=== PATIENT | female | born 1945 | race Caucasian/White ===

== ENCOUNTER → 2018-08-09 | Outpatient (REF) | payer MEDICARE, OTHER ==
[2018-08-10 14:43] LABS: ANTI CENTROMERE ANTIBODY <0.2 AI (0.0-0.9); ANTI SCLERODERMA ANTIBODIES <0.2 AI (0.0-0.9); ANTINUCLEAR ANTIBODIES DIRECT Negative (Negative)
== END ==
LOC: M LAB REF 12:36
PROVIDERS: ATTEND Nurse Practitioner Adult Health
DX: M79.10 Myalgia, unspecified site (principal)

== ENCOUNTER → 2018-11-14 | Outpatient (REF) | payer MEDICARE, OTHER ==
[2018-11-15 13:20] LABS: TOTAL PROTEIN 6.9 GM/DL (6.4-8.2)
[2018-11-19 12:01] LABS: ALBUMIN 4.18 GM/DL (3.29-5.55); ALBUMIN % 60.6 % (55.8-66.1); ALPHA-1-GLOBULIN % 4.3 % (2.9-4.9); ALPHA-2-GLOBULINS 0.66 GM/DL (0.42-0.99); ALPHA-2-GLOBULINS % 9.6 % (7.1-11.8); BETA-1-GLOBULINS 0.37 GM/DL (0.28-0.60); BETA-1-GLOBULINS % 5.4 % (4.7-7.2); BETA-2-GLOBULINS 0.36 GM/DL (0.19-0.55); BETA-2-GLOBULINS % 5.2 % (3.2-6.5); GAMMA GLOBULIN % 14.9 % (11.1-18.8); GAMMA GLOBULINS 1.03 GM/DL (0.65-1.58)
== END ==
LOC: M LAB REF 12:22
PROVIDERS: ATTEND Nurse Practitioner Adult Health
DX: R74.8 Abnormal levels of other serum enzymes (principal)

== ENCOUNTER → 2018-11-22 | Outpatient (REF) | payer MEDICARE, OTHER ==
[2018-11-22 18:38] LABS: PTH INTACT 169.2 PG/ML (18.5-88.0)
[2018-11-27 11:10] LABS: PHOSPHORUS LEVEL 3.1 MG/DL (2.5-4.9)
== END ==
LOC: M LAB REF 17:06
PROVIDERS: ATTEND Nurse Practitioner Adult Health
DX: R74.8 Abnormal levels of other serum enzymes (principal)

== ENCOUNTER → 2019-07-15 | Outpatient (REF) | payer MEDICARE, OTHER | LOC: M LAB REF 17:16 | PROVIDERS: ATTEND Nurse Practitioner Adult Health | DX: M15.0 Primary generalized (osteo)arthritis (principal); M79.10 Myalgia, unspecified site ==

== ENCOUNTER → 2019-09-11 | Outpatient (REF) | payer MEDICARE, OTHER ==
[2019-09-11 19:21] LABS: APPEARANCE, URINE CLEAR (CLEAR); BACTERIA, URINE AUTO 1+ (NEGATIVE); BILIRUBIN, URINE AUTO NEGATIVE (NEGATIVE); BLOOD, URINE BLOOD NEGATIVE (NEGATIVE); COLOR, URINE YELLOW (YELLOW); GLUCOSE, URINE (UA) AUTO NEGATIVE (NEGATIVE); KETONE, URINE AUTO NEGATIVE (NEGATIVE); LEUKOCYTE ESTERASE, URINE AUTO NEGATIVE (NEGATIVE); MUCUS, URINE SMALL (NEGATIVE); NITRITE, URINE AUTO NEGATIVE (NEGATIVE); PROTEIN, URINE AUTO NEGATIVE (NEGATIVE); RBC, URINE AUTO 2 /HPF (0-3); SPECIFIC GRAVITY URINE AUTO 1.011 (1.002-1.035); SQUAMOUS EPITHELIAL CELL UR AU 0 /HPF (0-6); UROBILINOGEN, URINE AUTO 0.2 mg/dL (0.0-2.0); WBC, URINE AUTO 1 /HPF (0-3)
== END ==
LOC: M LAB REF 16:23
PROVIDERS: ATTEND Nurse Practitioner Adult Health
DX: Z01.818 Encounter for other preprocedural examination (principal)

== ENCOUNTER 2020-01-27 12:45 | Outpatient (RCR) | payer MEDICARE, OTHER | END 2020-01-28 | disposition home or self-care (01) | LOC: M PT 12:45 | PROVIDERS: ATTEND Surgery Vascular Surgery | DX: I87.2 Venous insufficiency (chronic) (peripheral) (principal) ==

== ENCOUNTER 2020-01-29 12:47 | Outpatient (RCR) | payer MEDICARE, OTHER | END 2020-02-28 | LOC: M PT 12:47 | PROVIDERS: ATTEND Surgery Vascular Surgery | DX: I89.0 Lymphedema, not elsewhere classified (principal); I87.2 Venous insufficiency (chronic) (peripheral) ==

== ENCOUNTER → 2020-08-03 | Outpatient (REF) | payer MEDICARE, OTHER | LOC: M LAB REF 12:45 | PROVIDERS: ATTEND Nurse Practitioner Adult Health | DX: N76.2 Acute vulvitis (principal) ==

== ENCOUNTER → 2021-01-07 | Outpatient (CLI) | payer MEDICARE, OTHER ==
[~2021-01-07] MED LIST: E-Z-GAS II EFFERVESCENT PACKET (SODIUM BICARB./CITRIC ACID/SIMETHICONE) As Ordered ONE; E-Z-HD 98% w/w 340GM SUSP BTL As Ordered ONE; E-Z-PAQUE 96% w/w SUSP 176GM BTL As Ordered ONE
--- NOTE | 2021-01-07 15:15 | REP ---
INDICATION: DYSPHAGIA. COMPARISON: None. TECHNIQUE: The procedure was performed under the direct supervision of Dr. Rucker. The images were reviewed with . Liquid barium and gas producing crystals were given in the erect position as well as liquid barium in the prone oblique position in order to perform a double contrast upper GI examination. A combination of fluoroscopy, spot films and last image hold technology was utilized. 1.5 minutes of fluoro time was utilized for this procedure. FINDINGS: The chief ophthalmic technician film shows no organomegaly or pathological masses. The intestinal gas pattern is non-specific. There are vascular calcifications identified. There are degenerative changes of spine. There are degenerative changes in the hips bilaterally left greater than right. The oral and pharyngeal stages of deglutition are unremarkable. During esophageal transport there are tertiary waves demonstrated. In the mid esophagus there is mucosal irregularity which is consistent with esophagitis. There is no vandana ulcer identified. There is no stricture, mucosal ring or hiatal hernia identified. Gastroesophageal reflux is not demonstrated on this examination The stomach triana are normally outlined. The rugal folds are smooth and regular. There is no gastritis neoplasm or ulcer disease. Within the duodenum there are thickened folds which may represent duodenitis. There is no vandana ulcer identified the visualized portion of the proximal small bowel appears normal in course and caliber. IMPRESSION: 1. Tertiary waves. 2. There is mucosal irregularity in the mid esophagus which likely represents esophagitis. There is no vandana ulcer identified. 3. There are thickened folds in the duodenum which may represent duodenitis. <Electronically signed by Adama Garcia > 01/07/21 1509 <Electronically signed by Jose Rucker > 01/07/21 1514
== END ==
LOC: M RAD 08:49
PROVIDERS: ATTEND Surgery
DX: R13.14 Dysphagia, pharyngoesophageal phase (principal)

== ENCOUNTER → 2021-03-02 | Outpatient (CLI) | payer MEDICARE, OTHER | LOC: M LABSMTC 11:21 | PROVIDERS: ATTEND Internal Medicine Gastroenterology | DX: Z20.828 Contact with and (suspected) exposure to other viral communicable diseases (principal); Z11.52 Encounter for screening for COVID-19 ==

== ENCOUNTER → 2021-03-17 | Outpatient (CLI) | payer MEDICARE, OTHER | LOC: M LABSMTC 11:16 | PROVIDERS: ATTEND Internal Medicine Gastroenterology | DX: Z01.818 Encounter for other preprocedural examination (principal); Z11.52 Encounter for screening for COVID-19 ==

== ENCOUNTER → 2021-08-18 | Outpatient (REF) | payer MEDICARE, OTHER ==
[2021-08-18 16:40] LABS: INR 0.96; PROTHROMBIN TIME 13.2 SECONDS (12.7-14.5)
[2021-08-18 16:41] LABS: PARTIAL THROMBOPLASTIN TIME 35.9 SECONDS (25.9-37.0)
[2021-08-18 16:49] LABS: AMORPHOUS SEDIMENT SMALL (NEGATIVE); APPEARANCE, URINE TURBID (CLEAR); BACTERIA, URINE AUTO NEGATIVE (NEGATIVE); BILIRUBIN, URINE AUTO 1+ (NEGATIVE); BLOOD, URINE BLOOD NEGATIVE (NEGATIVE); COLOR, URINE AMBER (YELLOW); GLUCOSE, URINE (UA) AUTO NEGATIVE (NEGATIVE); KETONE, URINE AUTO TRACE mg/dL (NEGATIVE); LEUKOCYTE ESTERASE, URINE AUTO NEGATIVE (NEGATIVE); MUCUS, URINE LARGE (NEGATIVE); NITRITE, URINE AUTO NEGATIVE (NEGATIVE); PROTEIN, URINE AUTO 1+ mg/dL (NEGATIVE); RBC, URINE AUTO 1 /HPF (0-3); SQUAMOUS EPITHELIAL CELL UR AU 5 /HPF (0-6); WBC, URINE AUTO 0 /HPF (0-3)
== END ==
LOC: M LAB REF 16:15
PROVIDERS: ATTEND Nurse Practitioner Adult Health
DX: Z01.818 Encounter for other preprocedural examination (principal)

== ENCOUNTER → 2021-09-10 | Outpatient (CLI) | payer MEDICARE, OTHER | LOC: M LABSMTC 11:38 | PROVIDERS: ATTEND Orthopaedic Surgery | DX: Z01.812 Encounter for preprocedural laboratory examination (principal); Z20.822 Contact with and (suspected) exposure to COVID-19 ==

== ENCOUNTER → 2022-03-01 | Outpatient (REF) | payer MEDICARE, OTHER | LOC: M LAB REF 12:08 | PROVIDERS: ATTEND Nurse Practitioner Adult Health | DX: E21.0 Primary hyperparathyroidism (principal) ==

== ENCOUNTER → 2022-12-15 | Outpatient (REF) | payer MEDICARE, OTHER | LOC: M LAB REF 12:20 | PROVIDERS: ATTEND Nurse Practitioner Adult Health | DX: E21.0 Primary hyperparathyroidism (principal); E89.0 Postprocedural hypothyroidism; N39.0 Urinary tract infection, site not specified ==

== ENCOUNTER → 2024-02-07 | Outpatient (REF) | payer MEDICARE, OTHER | LOC: M LAB REF 16:41 | PROVIDERS: ATTEND Nurse Practitioner Family | DX: E21.0 Primary hyperparathyroidism (principal); E89.0 Postprocedural hypothyroidism ==

== ENCOUNTER 2024-12-06 19:30 | Inpatient (IN) | payer MEDICARE, OTHER ==
[~2024-12-06] VITALS: Ht 172.7 cm; Wt 103.2 kg
[2024-12-06] MEDS ORDERED: SYNT100T PO (19:52)
[2024-12-06 21:05] LABS: BASO # 0.0 10^3/uL (0.0-0.2); BASO % 0.5 % (0.0-1.0); EOS # 0.0 10^3/uL (0.0-0.5); EOS % 0.0 % (0.0-3.0); LYMPH # 0.2 10^3/uL (1.5-5.0); LYMPH % 3.7 % (24.0-44.0); MONO # 0.5 10^3/uL (0.0-0.8); MONO % 8.0 % (2.0-8.0); NEUTROPHILS # 5.4 10^3/uL (1.5-8.5); NEUTROPHILS % 87.3 % (36.0-66.0); PLATELET COUNT, AUTOMATED 131 10^3/uL (150-450)
[2024-12-06 21:35] LABS: C REACTIVE PROTEIN QUANTITATIV 9.15 MG/DL (<1.0)
[2024-12-06 21:40] LABS: ALT/SGPT 21 U/L (7.0-40); AST/SGOT 32 U/L (<34); CALCIUM LEVEL 8.6 MG/DL (8.3-10.6); CARBON DIOXIDE LEVEL 27 MMOL/L (20-31); CHLORIDE LEVEL 104 MMOL/L (98-107); CREATININE FOR GFR 0.72 MG/DL (0.55-1.30); GLOMERULAR FILTRATION RATE 84.0 (>32); POTASSIUM SERUM 3.5 MMOL/L (3.5-5.1); SODIUM LEVEL 141 MMOL/L (136-145)
[2024-12-06] MEDS: ACETAMINOPHEN 325 MG TAB PO ONE (23:03)
[2024-12-06 23:35] LABS: KETONE, URINE AUTO RFX NEGATIVE (NEGATIVE); LEUKOCYTE ESTERASE UR AUTO RFX NEGATIVE (NEGATIVE); MUCUS, URINE RFX SMALL (NEGATIVE); NITRITE, URINE AUTO RFX NEGATIVE (NEGATIVE); RBC, URINE AUTO RFX 0 /HPF (0-3); SQUAM EPITHELIAL CELL UR AURFX 1 /HPF (0-6); WBC, URINE AUTO RFX 1 /HPF (0-3)
[2024-12-06] MEDS: NS (Normal Saline) 0.9% 1,000 ML IV SCH (23:53)
[2024-12-07] MEDS ORDERED: ISOVUE-370 76% 100 ML VIAL As Ordered ONE (00:41)
[2024-12-07] MEDS ORDERED: LEVO150T7 PO (01:41)
[2024-12-07] MEDS ORDERED: HOME MED LIST COMPLETE! XX SCH (01:45)
[2024-12-07] MEDS: cefTRIAXone SOD 1 GM in DEXTROSE 5% (D5W) ADV/MINI-BAG 50 ML IV SCH (02:05)
[2024-12-07] MEDS: LR 1,000 ML IV SCH (02:05)
[2024-12-07] MEDS: ACETAMINOPHEN 325 MG TAB PO PRN (04:16)
[2024-12-07 04:30] VITALS: BP 162/81; TEMP 99.9; O2SAT 95
[2024-12-07 05:11] LABS: CA19-9 TUMOR MARKER,CARBOHYDRA < 1.2 U/ML (<35.0)
[2024-12-07] MEDS: LEVOTHYROXINE 150 MCG TABLET (0.15 MG) PO SCH (05:47)
[2024-12-07] MEDS: DOCUSATE SODIUM 100 MG CAPSULE PO SCH (08:01)
[2024-12-07] MEDS: ENOXAPARIN 40 MG/0.4 ML SYRINGE (J1650 PER 10MG) SC SCH (08:01)
[2024-12-07] MEDS ORDERED: PROHANCE 279.3MG/ML 5ML VIAL As Ordered ONE (10:43)
[2024-12-07] MEDS ORDERED: PROHANCE 279.3MG/ML 15ML VIAL As Ordered ONE (10:43)
[2024-12-07] MEDS: DOXYCYCLINE HYCLATE 100 MG TABLET PO SCH (12:15)
[2024-12-07 12:24] VITALS: BP 158/81; TEMP 98.6; O2SAT 91
[2024-12-07 13:19] LABS: BASO # 0.0 10^3/uL (0.0-0.2); BASO % 0.3 % (0.0-1.0); EOS # 0.0 10^3/uL (0.0-0.5); EOS % 0.0 % (0.0-3.0); LYMPH # 0.2 10^3/uL (1.5-5.0); LYMPH % 3.4 % (24.0-44.0); MONO # 0.3 10^3/uL (0.0-0.8); MONO % 4.8 % (2.0-8.0); NEUTROPHILS # 5.9 10^3/uL (1.5-8.5); NEUTROPHILS % 90.9 % (36.0-66.0); PLATELET COUNT, AUTOMATED 110 10^3/uL (150-450)
[2024-12-07 13:22] LABS: LDH LACTATE DEHYDROGENASE 356 U/L (120-246)
[2024-12-07 13:23] LABS: ALT/SGPT 41 U/L (7.0-40); AST/SGOT 81 U/L (<34); CALCIUM LEVEL 8.1 MG/DL (8.3-10.6); CARBON DIOXIDE LEVEL 26 MMOL/L (20-31); CHLORIDE LEVEL 104 MMOL/L (98-107); CREATININE FOR GFR 0.56 MG/DL (0.55-1.30); GLOMERULAR FILTRATION RATE > 90.0 (>32); POTASSIUM SERUM 3.3 MMOL/L (3.5-5.1); SODIUM LEVEL 141 MMOL/L (136-145)
[2024-12-07 14:05] LABS: C REACTIVE PROTEIN QUANTITATIV 19.43 MG/DL (<1.0)
[2024-12-07] MEDS ORDERED: VANCOMYCIN HCL 1,500 MG, VIAL MATE ADAPTER 1 EACH in NS 250 ML IV ONE (14:20)
[2024-12-07] MEDS ORDERED: MORPHINE 2 MG/ML 1 ML VIAL IV PRN (14:40)
[2024-12-07] MEDS: NS (Normal Saline) 0.9% 1,000 ML IV SCH (15:34)
[2024-12-07] MEDS: POTASSIUM CHLORIDE 10MEQ SR TABLET PO ONE (15:35)
[2024-12-07] MEDS: VANCOMYCIN HCL 2,000 MG, VIAL MATE ADAPTER 1 EACH in NS 500 ML IV ONE (17:30)
[2024-12-07 18:47] LABS: D-DIMER QUANT 5.73 ug/mL (<0.5); INR 1.44
[2024-12-07 20:12] VITALS: BP 120/59; TEMP 99; O2SAT 89
[2024-12-07 20:13] VITALS: O2SAT 94
[2024-12-08] MEDS: cefTRIAXone SOD 2 GM in DEXTROSE 5% (D5W) ADV/MINI-BAG 50 ML IV SCH (00:43)
[2024-12-08 04:37] VITALS: BP 142/70; TEMP 98.4; O2SAT 96
[2024-12-08 08:34] LABS: VANCOMYCIN RANDOM 6.5 UG/ML
[2024-12-08 08:53] LABS: PLATELET COUNT, AUTOMATED 87 10^3/uL (150-450)
[2024-12-08 08:55] LABS: ALT/SGPT 49 U/L (7.0-40); AST/SGOT 74 U/L (<34); C REACTIVE PROTEIN QUANTITATIV 28.71 MG/DL (<1.0); CALCIUM LEVEL 8.1 MG/DL (8.3-10.6); CARBON DIOXIDE LEVEL 26 MMOL/L (20-31); CHLORIDE LEVEL 108 MMOL/L (98-107); CREATININE FOR GFR 0.50 MG/DL (0.55-1.30); GLOMERULAR FILTRATION RATE > 90.0 (>32); MAGNESIUM LEVEL 1.9 MG/DL (1.8-2.4); POTASSIUM SERUM 3.2 MMOL/L (3.5-5.1); SODIUM LEVEL 144 MMOL/L (136-145)
[2024-12-08] MEDS: VANCOMYCIN HCL 1,250 MG, VIAL MATE ADAPTER 1 EACH in NS 250 ML IV SCH (09:30)
[2024-12-08] MEDS: POTASSIUM CHLORIDE 10MEQ SR TABLET PO ONE (09:30)
[2024-12-08] MEDS ORDERED: VANCOMYCIN HCL 1,500 MG, VIAL MATE ADAPTER 1 EACH in NS 500 ML IV SCH (10:00)
[2024-12-08] MEDS: LIDOCAINE 1% MDV 20 ML VIAL SC STA (12:20)
[2024-12-08] MEDS: KCL 20MEQ in NS 1000ML 1,000 ML IV SCH (14:02)
[2024-12-08 14:36] LABS: SOURCE, BODY FLUID RT KNEE
[2024-12-08 14:47] LABS: CRYSTALS, BODY FLUID NONE SEEN (NONE SEEN); SOURCE, BODY FLUID CRYSTALS RT KNEE
[2024-12-08 21:16] VITALS: BP 139/85; TEMP 98.2; O2SAT 92
[2024-12-09] VITALS (7 sets, daily range): BP systolic 136–170; BP diastolic 62–86; TEMP 98.1–99.9; O2SAT 91–94
[2024-12-09 08:41] LABS: BASO # 0.0 10^3/uL (0.0-0.2); BASO % 0.5 % (0.0-1.0); EOS # 0.0 10^3/uL (0.0-0.5); EOS % 0.5 % (0.0-3.0); LYMPH # 0.6 10^3/uL (1.5-5.0); LYMPH % 9.4 % (24.0-44.0); MONO # 0.7 10^3/uL (0.0-0.8); MONO % 10.7 % (2.0-8.0); NEUTROPHILS # 5.0 10^3/uL (1.5-8.5); NEUTROPHILS % 78.6 % (36.0-66.0)
[2024-12-09 08:42] LABS: PLATELET COUNT, AUTOMATED 93 10^3/uL (150-450)
[2024-12-09 09:02] LABS: ALT/SGPT 39 U/L (7.0-40); AST/SGOT 57 U/L (<34); CALCIUM LEVEL 8.1 MG/DL (8.3-10.6); CARBON DIOXIDE LEVEL 27 MMOL/L (20-31); CHLORIDE LEVEL 106 MMOL/L (98-107); CREATININE FOR GFR 0.44 MG/DL (0.55-1.30); GLOMERULAR FILTRATION RATE > 90.0 (>32); POTASSIUM SERUM 3.7 MMOL/L (3.5-5.1); SODIUM LEVEL 142 MMOL/L (136-145)
[2024-12-09] MEDS: ceFAZolin SODIUM 2 GM in DEXTROSE 5% (D5W) ADV/MINI-BAG 50 ML IV SCH (10:04)
[2024-12-09] MEDS ORDERED: ONDANSETRON 4MG 2ML VIAL As Ordered ONE (17:17)
[2024-12-09] MEDS ORDERED: LIDOCAINE 2% 100 MG/5 ML SDV (FOR ANES.) As Ordered ONE (17:17)
[2024-12-09] MEDS ORDERED: dexAMETHasone 4 MG/ML 1 ML VIAL As Ordered ONE (17:17)
[2024-12-09] MEDS ORDERED: KETOROLAC 30 MG/ML 1 ML VIAL As Ordered ONE (17:17)
[2024-12-09] MEDS ORDERED: ACETAMINOPHEN 1000MG/100ML IV BAG As Ordered ONE (18:30)
[2024-12-09] MEDS ORDERED: PHENYLephrine 500MCG 5ML (100MCG/ML) SYRINGE As Ordered ONE (18:37)
[2024-12-09] MEDS: EPINEPHrine 1 MG/ML INJ 30 ML MD-VIAL As Ordered ONE (19:03)
[2024-12-09] MEDS ORDERED: ONDANSETRON 4MG 2ML VIAL IV PRN (19:15)
[2024-12-09] MEDS ORDERED: MORPHINE 2 MG/ML 1 ML VIAL IV PRN (19:15)
[2024-12-09] MEDS ORDERED: LABETALOL 100 MG/20 ML VIAL As Ordered ONE (19:21)
[2024-12-09] MEDS: ASPIRIN 81 MG ENTERIC TABLET PO SCH (20:45)
[2024-12-10] VITALS (7 sets, daily range): BP systolic 130–169; BP diastolic 68–78; TEMP 97.5–98.4; O2SAT 90–95
[2024-12-10 06:20] LABS: BASO # 0.0 10^3/uL (0.0-0.2); BASO % 0.2 % (0.0-1.0); EOS # 0.0 10^3/uL (0.0-0.5); EOS % 0.0 % (0.0-3.0); LYMPH # 0.4 10^3/uL (1.5-5.0); LYMPH % 6.4 % (24.0-44.0); MONO # 0.5 10^3/uL (0.0-0.8); MONO % 8.6 % (2.0-8.0); NEUTROPHILS # 5.1 10^3/uL (1.5-8.5); NEUTROPHILS % 84.5 % (36.0-66.0); PLATELET COUNT, AUTOMATED 131 10^3/uL (150-450)
[2024-12-10 06:39] LABS: ALT/SGPT 32 U/L (7.0-40); AST/SGOT 38 U/L (<34); CALCIUM LEVEL 8.2 MG/DL (8.3-10.6); CARBON DIOXIDE LEVEL 29 MMOL/L (20-31); CHLORIDE LEVEL 105 MMOL/L (98-107); CREATININE FOR GFR 0.44 MG/DL (0.55-1.30); GLOMERULAR FILTRATION RATE > 90.0 (>32); MAGNESIUM LEVEL 1.9 MG/DL (1.8-2.4); POTASSIUM SERUM 4.0 MMOL/L (3.5-5.1); SODIUM LEVEL 144 MMOL/L (136-145)
[2024-12-10 07:21] LABS: C REACTIVE PROTEIN QUANTITATIV 23.97 MG/DL (<1.0)
[2024-12-10] MEDS ORDERED: SODIUM CHLORIDE 0.9% INJ 10 ML SYR IV PRN (17:10)
[2024-12-10] MEDS: SODIUM CHLORIDE 0.9% INJ 10 ML SYR IV SCH (18:19)
[2024-12-10] MEDS: ENOXAPARIN 40 MG/0.4 ML SYRINGE (J1650 PER 10MG) SC SCH (20:54)
[2024-12-11 04:00] VITALS: BP 164/74; TEMP 98.1; O2SAT 95
[2024-12-11 06:22] LABS: BASO # 0.0 10^3/uL (0.0-0.2); BASO % 0.3 % (0.0-1.0); EOS # 0.0 10^3/uL (0.0-0.5); EOS % 0.5 % (0.0-3.0); LYMPH # 1.0 10^3/uL (1.5-5.0); LYMPH % 16.5 % (24.0-44.0); MONO # 0.9 10^3/uL (0.0-0.8); MONO % 14.9 % (2.0-8.0); NEUTROPHILS # 4.1 10^3/uL (1.5-8.5); NEUTROPHILS % 67.1 % (36.0-66.0); PLATELET COUNT, AUTOMATED 142 10^3/uL (150-450)
[2024-12-11 06:50] LABS: ALT/SGPT 34 U/L (7.0-40); AST/SGOT 47 U/L (<34); C REACTIVE PROTEIN QUANTITATIV 15.56 MG/DL (<1.0); CALCIUM LEVEL 8.2 MG/DL (8.3-10.6); CARBON DIOXIDE LEVEL 31 MMOL/L (20-31); CHLORIDE LEVEL 105 MMOL/L (98-107); CREATININE FOR GFR 0.47 MG/DL (0.55-1.30); GLOMERULAR FILTRATION RATE > 90.0 (>32); POTASSIUM SERUM 3.5 MMOL/L (3.5-5.1); SODIUM LEVEL 144 MMOL/L (136-145)
[2024-12-11] MEDS: SENNA 8.6 MG TAB PO SCH (09:00)
[2024-12-11 09:52] VITALS: BP 148/70; TEMP 97.8; O2SAT 91
[2024-12-11 13:00] VITALS: BP 131/70; TEMP 98; O2SAT 92
[2024-12-11 15:17] LABS: BORRELIA SPECIES DNA NOT DETECTED (NOT DETECT)
[2024-12-11] MEDS ORDERED: NALOXONE INJ 0.4 MG/1 ML VIAL IV PRN (19:55)
[2024-12-11 20:25] VITALS: BP 156/70; TEMP 97.2; O2SAT 92
[2024-12-11] MEDS: KETOROLAC 30 MG/ML 1 ML VIAL IV SCH (20:52)
[2024-12-11] MEDS: SENNOSIDES/DOCUSATE SODIUM 8.6 MG/50MG TAB PO SCH (20:52)
[2024-12-11] MEDS: METHOCARBAMOL 1,000 MG/10 ML VIAL IV ONE (22:04)
[2024-12-12 03:09] VITALS: O2SAT 82
[2024-12-12 03:10] VITALS: O2SAT 94
[2024-12-12 04:35] VITALS: BP 129/79; TEMP 97.7; O2SAT 92
[2024-12-12 06:14] LABS: BASO # 0.0 10^3/uL (0.0-0.2); BASO % 0.3 % (0.0-1.0); EOS # 0.1 10^3/uL (0.0-0.5); EOS % 1.3 % (0.0-3.0); LYMPH # 1.0 10^3/uL (1.5-5.0); LYMPH % 16.8 % (24.0-44.0); MONO # 0.8 10^3/uL (0.0-0.8); MONO % 13.8 % (2.0-8.0); NEUTROPHILS # 4.0 10^3/uL (1.5-8.5); NEUTROPHILS % 66.8 % (36.0-66.0); PLATELET COUNT, AUTOMATED 175 10^3/uL (150-450)
[2024-12-12 06:48] LABS: ALT/SGPT 32 U/L (7.0-40); AST/SGOT 45 U/L (<34); CALCIUM LEVEL 7.9 MG/DL (8.3-10.6); CARBON DIOXIDE LEVEL 32 MMOL/L (20-31); CHLORIDE LEVEL 106 MMOL/L (98-107); CREATININE FOR GFR 0.42 MG/DL (0.55-1.30); GLOMERULAR FILTRATION RATE > 90.0 (>32); POTASSIUM SERUM 3.2 MMOL/L (3.5-5.1); SODIUM LEVEL 146 MMOL/L (136-145)
[2024-12-12 06:51] LABS: C REACTIVE PROTEIN QUANTITATIV 16.76 MG/DL (<1.0)
[2024-12-12] MEDS: MOM 30 ML SUSPENSION UDC PO PRN (08:30)
[2024-12-12] MEDS ORDERED: CEFA2VIA3 IV (11:15)
[2024-12-12] MEDS ORDERED: ACET32TAB PO (11:15)
[2024-12-12] MEDS ORDERED: DOCU8.6T PO (11:15)
[2024-12-12] MEDS: FLEET ENEMA PR STA (11:50)
== END 2024-12-12 12:35 | DRG 487 ==
LOC: M ED 19:30 → M ED INP 12-07 02:06 → M MSPAV 12-07 03:59
PROVIDERS: ADMIT Student in an Organized Health Care Education/Training Program; ATTEND Internal Medicine
PROC: 0S9D3ZX Drainage of Left Knee Joint, Percutaneous Approach, Diagnostic (ICD-10-PCS; 2024-12-08)
PROC: B246ZZZ Ultrasonography of Right and Left Heart (ICD-10-PCS; 2024-12-08)
PROC: 0SBC3ZZ Excision of Right Knee Joint, Percutaneous Approach (ICD-10-PCS; principal; 2024-12-09 12:50)
DX: M00.061 Staphylococcal arthritis, right knee (principal); M25.461 Effusion, right knee; E89.0 Postprocedural hypothyroidism; D69.6 Thrombocytopenia, unspecified; Z66 Do not resuscitate; M25.561 Pain in right knee; E87.6 Hypokalemia; R53.1 Weakness; M17.11 Unilateral primary osteoarthritis, right knee; Z96.642 Presence of left artificial hip joint; Z79.890 Hormone replacement therapy

== ENCOUNTER → 2024-12-17 | Outpatient (REF) ==
[~2024-12-17] MED LIST changes: +ACET32TAB PO; +CEFA2VIA3 IV; +DOCU8.6T PO; -E-Z-GAS II EFFERVESCENT PACKET (SODIUM BICARB./CITRIC ACID/SIMETHICONE) As Ordered ONE; -E-Z-HD 98% w/w 340GM SUSP BTL As Ordered ONE; -E-Z-PAQUE 96% w/w SUSP 176GM BTL As Ordered ONE; +LEVO150T7 PO; +SYNT100T PO
[2024-12-17 14:08] LABS: PLATELET COUNT, AUTOMATED 323 10^3/uL (150-450)
[2024-12-17 14:29] LABS: ERYTHROCYTE SEDIMENTATION RATE 43 mm/hr (0-30)
[2024-12-17 14:41] LABS: CALCIUM LEVEL 8.3 MG/DL (8.3-10.6); CARBON DIOXIDE LEVEL 31 MMOL/L (20-31); CHLORIDE LEVEL 104 MMOL/L (98-107); CREATININE FOR GFR 0.39 MG/DL (0.55-1.30); GLOMERULAR FILTRATION RATE > 90.0 (>32); POTASSIUM SERUM 3.8 MMOL/L (3.5-5.1); SODIUM LEVEL 144 MMOL/L (136-145)
[2024-12-17 14:42] LABS: C REACTIVE PROTEIN QUANTITATIV 19.69 MG/DL (<1.0)
== END ==
PROVIDERS: ATTEND Internal Medicine
DX: M00.061 Staphylococcal arthritis, right knee (principal)

== ENCOUNTER → 2024-12-22 | Outpatient (REF) ==
[2024-12-22 17:47] LABS: BASO # 0.1 10^3/uL (0.0-0.2); BASO % 0.7 % (0.0-1.0); EOS # 0.2 10^3/uL (0.0-0.5); EOS % 1.7 % (0.0-3.0); LYMPH # 1.0 10^3/uL (1.5-5.0); LYMPH % 11.3 % (24.0-44.0); MONO # 0.9 10^3/uL (0.0-0.8); MONO % 9.9 % (2.0-8.0); NEUTROPHILS # 6.5 10^3/uL (1.5-8.5); NEUTROPHILS % 75.6 % (36.0-66.0); PLATELET COUNT, AUTOMATED 436 10^3/uL (150-450)
[2024-12-22 17:54] LABS: ERYTHROCYTE SEDIMENTATION RATE 53 mm/hr (0-30)
== END ==
PROVIDERS: ATTEND Physician Assistant
DX: M25.561 Pain in right knee (principal)

== ENCOUNTER → 2024-12-22 | Outpatient (REF) | PROVIDERS: ATTEND Internal Medicine | DX: M00.061 Staphylococcal arthritis, right knee (principal); M25.461 Effusion, right knee ==

== ENCOUNTER → 2024-12-24 | Outpatient (REF) | payer MEDICARE, OTHER ==
[2024-12-24 11:35] LABS: PLATELET COUNT, AUTOMATED 456 10^3/uL (150-450)
[2024-12-24 11:41] LABS: ERYTHROCYTE SEDIMENTATION RATE 59 mm/hr (0-30)
[2024-12-24 11:57] LABS: CALCIUM LEVEL 8.9 MG/DL (8.3-10.6); CARBON DIOXIDE LEVEL 31 MMOL/L (20-31); CHLORIDE LEVEL 102 MMOL/L (98-107); CREATININE FOR GFR 0.48 MG/DL (0.55-1.30); GLOMERULAR FILTRATION RATE > 90.0 (>32); POTASSIUM SERUM 3.7 MMOL/L (3.5-5.1); SODIUM LEVEL 144 MMOL/L (136-145)
[2024-12-24 12:08] LABS: C REACTIVE PROTEIN QUANTITATIV 15.82 MG/DL (<1.0)
== END ==
PROVIDERS: ATTEND Internal Medicine
DX: M00.061 Staphylococcal arthritis, right knee (principal)

== ENCOUNTER → 2024-12-31 | Outpatient (REF) ==
[2024-12-31 13:41] LABS: PLATELET COUNT, AUTOMATED 289 10^3/uL (150-450)
[2024-12-31 14:08] LABS: C REACTIVE PROTEIN QUANTITATIV 5.28 MG/DL (<1.0)
[2024-12-31 14:09] LABS: CALCIUM LEVEL 8.5 MG/DL (8.3-10.6); CARBON DIOXIDE LEVEL 31 MMOL/L (20-31); CHLORIDE LEVEL 102 MMOL/L (98-107); CREATININE FOR GFR 0.40 MG/DL (0.55-1.30); GLOMERULAR FILTRATION RATE > 90.0 (>32); POTASSIUM SERUM 4.4 MMOL/L (3.5-5.1); SODIUM LEVEL 144 MMOL/L (136-145)
[2024-12-31 14:24] LABS: ERYTHROCYTE SEDIMENTATION RATE 41 mm/hr (0-30)
== END ==
PROVIDERS: ATTEND Internal Medicine
DX: M00.061 Staphylococcal arthritis, right knee (principal)

== ENCOUNTER → 2025-01-07 | Outpatient (REF) ==
[2025-01-07 12:06] LABS: PLATELET COUNT, AUTOMATED 232 10^3/uL (150-450)
[2025-01-07 12:16] LABS: ERYTHROCYTE SEDIMENTATION RATE 24 mm/hr (0-30)
[2025-01-07 12:32] LABS: C REACTIVE PROTEIN QUANTITATIV 2.59 MG/DL (<1.0)
[2025-01-07 12:33] LABS: CALCIUM LEVEL 8.5 MG/DL (8.3-10.6); CARBON DIOXIDE LEVEL 31 MMOL/L (20-31); CHLORIDE LEVEL 104 MMOL/L (98-107); CREATININE FOR GFR 0.41 MG/DL (0.55-1.30); GLOMERULAR FILTRATION RATE > 90.0 (>32); POTASSIUM SERUM 4.6 MMOL/L (3.5-5.1); SODIUM LEVEL 144 MMOL/L (136-145)
== END ==
PROVIDERS: ATTEND Internal Medicine
DX: M00.061 Staphylococcal arthritis, right knee (principal)

== ENCOUNTER → 2025-01-12 | Outpatient (REF) ==
[2025-01-12 11:11] LABS: PLATELET COUNT, AUTOMATED 231 10^3/uL (150-450)
[2025-01-12 11:37] LABS: CALCIUM LEVEL 8.6 MG/DL (8.3-10.6); CARBON DIOXIDE LEVEL 27 MMOL/L (20-31); CHLORIDE LEVEL 104 MMOL/L (98-107); CREATININE FOR GFR 0.47 MG/DL (0.55-1.30); GLOMERULAR FILTRATION RATE > 90.0 (>32); POTASSIUM SERUM 3.7 MMOL/L (3.5-5.1); SODIUM LEVEL 140 MMOL/L (136-145)
== END ==
PROVIDERS: ATTEND Physician Assistant
DX: R78.81 Bacteremia (principal); B95.61 Methicillin susceptible Staphylococcus aureus infection as the cause of diseases classified elsewhere

== ENCOUNTER → 2025-01-13 | Outpatient (REF) | payer MEDICARE, OTHER ==
[~2025-01-13] MED LIST changes: +PROHANCE 279.3MG/ML 15ML VIAL As Ordered ONE; +PROHANCE 279.3MG/ML 5ML VIAL As Ordered ONE
== END ==
LOC: M RAD 16:53 → EDSTATUS 17:15
PROVIDERS: ATTEND Physician Assistant
DX: R78.81 Bacteremia (principal); M16.11 Unilateral primary osteoarthritis, right hip; Z96.642 Presence of left artificial hip joint; M47.816 Spondylosis without myelopathy or radiculopathy, lumbar region; M48.061 Spinal stenosis, lumbar region without neurogenic claudication; M47.815 Spondylosis without myelopathy or radiculopathy, thoracolumbar region

== ENCOUNTER → 2025-01-19 | Outpatient (REF) ==
[~2025-01-19] MED LIST changes: -PROHANCE 279.3MG/ML 15ML VIAL As Ordered ONE; -PROHANCE 279.3MG/ML 5ML VIAL As Ordered ONE
== END ==
PROVIDERS: ATTEND Physician Assistant
DX: M00.061 Staphylococcal arthritis, right knee (principal)

== ENCOUNTER → 2025-01-26 | Outpatient (REF) ==
[2025-01-26 11:15] LABS: PLATELET COUNT, AUTOMATED 262 10^3/uL (150-450)
[2025-01-26 11:23] LABS: ERYTHROCYTE SEDIMENTATION RATE 20 mm/hr (0-30)
[2025-01-26 11:50] LABS: C REACTIVE PROTEIN QUANTITATIV 1.09 MG/DL (<1.0); CALCIUM LEVEL 9.0 MG/DL (8.3-10.6); CARBON DIOXIDE LEVEL 27 MMOL/L (20-31); CHLORIDE LEVEL 103 MMOL/L (98-107); CREATININE FOR GFR 0.54 MG/DL (0.55-1.30); GLOMERULAR FILTRATION RATE > 90.0 (>32); POTASSIUM SERUM 4.0 MMOL/L (3.5-5.1); SODIUM LEVEL 141 MMOL/L (136-145)
== END ==
PROVIDERS: ATTEND Physician Assistant
DX: M00.061 Staphylococcal arthritis, right knee (principal)

== ENCOUNTER → 2025-02-02 | Outpatient (REF) ==
[2025-02-02 11:08] LABS: PLATELET COUNT, AUTOMATED 255 10^3/uL (150-450)
[2025-02-02 11:14] LABS: ERYTHROCYTE SEDIMENTATION RATE 18 mm/hr (0-30)
[2025-02-02 11:29] LABS: C REACTIVE PROTEIN QUANTITATIV 1.22 MG/DL (<1.0)
[2025-02-02 11:31] LABS: CALCIUM LEVEL 9.1 MG/DL (8.3-10.6); CARBON DIOXIDE LEVEL 28 MMOL/L (20-31); CHLORIDE LEVEL 104 MMOL/L (98-107); CREATININE FOR GFR 0.55 MG/DL (0.55-1.30); GLOMERULAR FILTRATION RATE > 90.0 (>32); POTASSIUM SERUM 4.2 MMOL/L (3.5-5.1); SODIUM LEVEL 142 MMOL/L (136-145)
== END ==
PROVIDERS: ATTEND Physician Assistant
DX: M00.061 Staphylococcal arthritis, right knee (principal)

== ENCOUNTER → 2025-02-09 | Outpatient (REF) ==
[2025-02-09 13:04] LABS: PLATELET COUNT, AUTOMATED 246 10^3/uL (150-450)
[2025-02-09 13:13] LABS: ERYTHROCYTE SEDIMENTATION RATE 15 mm/hr (0-30)
[2025-02-09 13:38] LABS: C REACTIVE PROTEIN QUANTITATIV 0.87 MG/DL (<1.0); CALCIUM LEVEL 9.1 MG/DL (8.3-10.6); CARBON DIOXIDE LEVEL 27 MMOL/L (20-31); CHLORIDE LEVEL 105 MMOL/L (98-107); CREATININE FOR GFR 0.54 MG/DL (0.55-1.30); GLOMERULAR FILTRATION RATE > 90.0 (>32); POTASSIUM SERUM 3.9 MMOL/L (3.5-5.1); SODIUM LEVEL 145 MMOL/L (136-145)
== END ==
PROVIDERS: ATTEND Physician Assistant
DX: M00.061 Staphylococcal arthritis, right knee (principal)

== ENCOUNTER → 2025-02-12 | Outpatient (REF) | PROVIDERS: ATTEND Physician Assistant | DX: M00.061 Staphylococcal arthritis, right knee (principal); Z53.8 Procedure and treatment not carried out for other reasons ==

== ENCOUNTER → 2025-02-12 | Outpatient (REF) | PROVIDERS: ATTEND Physician Assistant | DX: M00.061 Staphylococcal arthritis, right knee (principal); Z53.8 Procedure and treatment not carried out for other reasons ==

== ENCOUNTER → 2025-02-12 | Outpatient (REF) | PROVIDERS: ATTEND Physician Assistant | DX: M00.061 Staphylococcal arthritis, right knee (principal); Z53.8 Procedure and treatment not carried out for other reasons ==

== ENCOUNTER → 2025-02-12 | Outpatient (REF) | PROVIDERS: ATTEND Physician Assistant | DX: M00.061 Staphylococcal arthritis, right knee (principal); Z53.8 Procedure and treatment not carried out for other reasons ==

== ENCOUNTER 2025-02-26 07:45 | Outpatient (RCR) | payer MEDICARE, OTHER | END 2025-02-27 | LOC: M PT 07:45 | PROVIDERS: ATTEND Physician Assistant | DX: R26.89 Other abnormalities of gait and mobility (principal); M00.061 Staphylococcal arthritis, right knee ==

== ENCOUNTER 2025-03-24 14:03 | Outpatient (RCR) | payer MEDICARE, OTHER ==
[~2025-03-24 14:03] MED LIST changes: -DOCU8.6T PO; +SENN-208 PO
== END 2025-03-29 ==
LOC: M PT 14:03
PROVIDERS: ATTEND Physician Assistant
DX: M00.061 Staphylococcal arthritis, right knee (principal); R26.89 Other abnormalities of gait and mobility